=== PATIENT | female | born 1980 | race Caucasian/White ===

== ENCOUNTER 2016-04-30 18:42 | Emergency (ER) | payer OTHER ==
--- NOTE | 2016-04-30 19:13 | UCPHY ---
H & P Time Seen by Provider: 04/30/16 18:56 Patient Type: New HPI/ROS: This patient lifted heavy box at work and felt pain in a bulge abruptly in the umbilicus that she thinks is hernia. Pain is moderate. She again left something at work and had recurrence and had reduce the bulge. She states that this caused moderate pain and tenderness but now has minimal pain at baseline. She wrap to large elastic bandage around her waist with a pad but states this cause more discomfort. She has never had this symptom before. ROS: No fevers. No other constitutional symptoms. Cardiovascular: No lightheadedness GI: No nausea or vomiting. She maintains good appetite. She has mild constipation baseline typically going once every 2-3 days. Last BM was 2 days ago. Normal consistency. 7 point ROS is otherwise negative. Past Medical/Surgical History: Past surgical history of C-sections. No other abdominal surgeries. No prior hernias. Smoking Status: Former smoker Physical Exam: General Appearance: Alert, no distress. Eyes: Pupils equal and round no pallor or injection. ENT, Mouth: Mucous membranes moist. Respiratory: There are no retractions, lungs are clear to auscultation. Cardiovascular: Regular rate and rhythm. Gastrointestinal: Normoactive, soft, umbilical tenderness is present. With Valsalva there is a subtle bulge to the area. No guarding or rebound. She has no erythema overlying the area. No ecchymosis. Neurological: Alert no focal deficits noted Skin: Warm and dry, no rashes. Psychiatric: Mood and affect are normal DIFFERENTIAL DIAGNOSIS: After history and physical exam differential diagnosis was considered for reducible umbilical hernia, abdominal muscle wall strain Constitutional: Initial Vital Signs Temperature (C) 37 C 04/30/16 18:58 Heart Rate 95 04/30/16 18:58 Respiratory Rate 16 04/30/16 18:58 Blood Pressure 139/99 H 04/30/16 18:58 O2 Sat (%) 98 04/30/16 18:58 O2 Delivery Mode Room Air Allergies/Adverse Reactions: No Known Allergies Allergy (Unverified 04/30/16 19:13) Home Medications: Medication Instructions Recorded Iron 03/04/14 Vitamins 03/04/14 Docusate Sodium [Colace 100 MG (*)] 100 mg PO BID PRN #30 cap 03/07/14 HYDROmorphone HCL [Dilaudid 2 mg 2 mg PO Q4 PRN #30 tab 03/07/14 (*)] Ibuprofen [Motrin (*)] 600 mg PO Q6 PRN #30 tab 03/07/14 traMADol [Ultram 50 mg (*)] 50 - 100 mg PO Q4 #15 tab 04/30/16 MDM/Departure - [facility] ED Course/Re-evaluation: I counseled patient regarding hernia. Discussion: No evidence currently of incarcerated hernia, bowel obstruction or other complicating factors - Depart Disposition: Home, Routine, Self-Care Clinical Impression: Umbilical hernia Qualifiers: Obstruction and gangrene presence: without obstruction or gangrene Qualified Code(s): K42.9 - Umbilical hernia without obstruction or gangrene Condition: Good Instructions: Umbilical Hernia (ED) Additional Instructions: Diagnosis: Umbilical hernia Plan: Avoid lifting more than 10 lb Stool softener to prevent constipation Ibuprofen and tramadol or Tylenol for pain control as needed Follow up with the general surgeon listed below for further evaluation. Go the emergency department if you developed a bulge the your unable to reduce despite the instructions given, unbearable pain, vomiting or other concerns. Stand Alone Forms: Work Limited Duty, Work Excuse Prescriptions: traMADol [Ultram 50 mg (*)] 50 - 100 mg PO Q4 #15 tab Referrals: Navin Romero MD [Medical Doctor] - As per Instructions - PQRS PQRS Measurement: NA
[2016-04-30 19:14] VITALS: BP 139/99; PULSE 95; RESP 16; TEMP 98.6; O2SAT 98
== END 2016-04-30 19:25 | disposition home or self-care (01) ==
LOC: CED 18:42
DX: K42.9 Umbilical hernia without obstruction or gangrene (principal); Z87.891 Personal history of nicotine dependence
CPT/HCPCS: 99203-PO; G0463-PO

== ENCOUNTER 2016-05-27 05:42 | Day surgery (SDC) | payer OTHER ==
[2016-05-27] MEDS ORDERED: LIDOCAINE 1% 2 ML INJ ONE (05:59)
[2016-05-27] MEDS ORDERED: ceFAZolin 2 GM/DEXTROSE 100 ML IV ONE (06:00)
[2016-05-27] MEDS ORDERED: BUPIVACAINE 0.5% 30 ML SDV ONE (07:07)
[2016-05-27] MEDS ORDERED: SKIN ADHESIVE (DERMABOND) 1 EACH TP ONE (07:07)
[2016-05-27] MEDS ORDERED: MIDAZOLAM 2 MG/2 ML VIAL ONE (07:17)
[2016-05-27] MEDS ORDERED: LIDOCAINE 2% 100 MG/5 ML SYR ONE (07:17)
[2016-05-27] MEDS ORDERED: KETOROLAC 30 MG/1 ML SDV ONE (07:17)
[2016-05-27] MEDS ORDERED: PROPOFOL/EMULSION 500 MG/50 ML BOTTLE IV ONE (07:17)
[2016-05-27] MEDS ORDERED: fentaNYL 250 MCG/5 ML INJ ONE (07:17)
[2016-05-27] MEDS ORDERED: LIDOCAINE 1% 30 ML SDV ONE (07:19)
[2016-05-27] MEDS ORDERED: OXYCODONE/APAP 5/325 TAB ONE (09:02)
[2016-05-27] MEDS ORDERED: fentaNYL 100 MCG/2 ML INJ ONE (09:30)
[2016-05-27] MEDS ORDERED: ONDANSETRON 4 MG/2 ML VIAL ONE (09:56)
--- NOTE | 2016-05-27 11:30 | GOP ---
[f rep st] OPERATIVE REPORT DATE OF OPERATION: 05/27/2016 SURGEON: Neil Aceves MD ACCOUNT ANALYST: None. ANESTHESIA: Local with MAC. ANESTHESIOLOGIST: Dr. Dodd. PREOPERATIVE DIAGNOSIS: Symptomatic umbilical hernia. POSTOPERATIVE DIAGNOSIS: Symptomatic umbilical hernia. PROCEDURE PERFORMED: Primary umbilical hernia repair. FINDINGS: Less than 2 cm hernia defect repaired primarily. No mesh. SPECIMENS: Hernia sac. ESTIMATED BLOOD LOSS: 5 cc. DESCRIPTION OF PROCEDURE: The patient was greeted in the preoperative suite. Once again, risks, benefits, and alternatives were discussed. Consent was signed. She was then brought back to the operative suite, placed on the OR table in a supine position. After all anesthesia machines were on and functioning, a [employer] time-out was performed. The patient was then gently sedated. Her abdomen was prepped and draped in typical sterile fashion. Using a combination of 1% lidocaine and 0.5% Marcaine throughout the case I created a field block. I made a curvilinear incision inferior to the umbilicus and carried this down to the subcutaneous tissue. I amputated the umbilical stalk from the underlying fascial edge. Just above this, I encountered the hernia defect which measured approximately 1.5 cm in greatest dimension. I reduced the sac and sent a portion of it for pathology. I cleaned the fascial edges. Once this was done, I reapproximated the fascial edges with interrupted 0 Ethibond sutures, noting excellent fascial reapproximation under minimal tension. Hemostasis was achieved with gentle pressure. After this, I reapproximated the umbilical stalk to the underlying fascia with a single interrupted 3-0 Vicryl suture and reapproximated the underlying subcutaneous tissue in the same fashion and closed the skin with running 4-0 Monocryl. Dermabond and a sterile dressing were placed. The patient was then gently awoken and taken to the PACU in satisfactory condition. COUNTS: All counts were reported as correct x2. /[id number]/MODL MTDD
== END 2016-05-27 11:00 | disposition home or self-care (01) ==
LOC: FSGY 05:42
PROVIDERS: ATTEND Surgery
PROC: 0WQF0ZZ Repair Abdominal Wall, Open Approach (ICD-10-PCS; principal; 2016-05-27 07:15)
DX: K42.9 Umbilical hernia without obstruction or gangrene (principal)
CPT/HCPCS: J0690; J1885; J2001; J2250; J2405; J2704; J3010